=== PATIENT | female | born 1970 | race Caucasian/White ===

== ENCOUNTER 2022-06-04 14:06 | Emergency (ER) | payer SELFPAY ==
[~2022-06-04] VITALS: Ht 165.1 cm; Wt 65.8 kg
[2022-06-04 14:49] VITALS: BP_SYST 122
--- NOTE | 2022-06-04 14:54 | NUR ---
Patient triaged and placed in waiting room. VSS and patient appears in no acute distress at this time. Accompanied by self, awaiting available bed, and MD notified of need for MSE.
--- NOTE | 2022-06-04 15:00 | NUR ---
ER at bedside examining patient.
--- NOTE | 2022-06-04 15:30 | NUR ---
Pt presents to the ER BIB self from home. CC inflammation of right foot 2nd toe. Pt denies pain c/o discomfort and redness.
[2022-06-04] MEDS ORDERED: CEPH-548 PO ×2 (16:05→16:41)
--- NOTE | 2022-06-04 16:43 | NUR ---
Patient given written and verbal discharge instructions and verbalizes understanding. ER MD discussed with patient the results and treatment provided. Patient in stable condition. ID arm band removed. IV catheter removed intact and dressing applied, no active bleeding. Rx of CEPHALEXIN given. Patient educated on pain management and to follow up with PMD. Opportunity for questions provided and answered. Medication side effect fact sheet provided.
[2022-06-04 16:46] VITALS: BP_SYST 122
== END 2022-06-04 16:43 | disposition home or self-care (01) ==
LOC: SED 14:06
DX: L03.031 Cellulitis of right toe (principal); R21 Rash and other nonspecific skin eruption; M79.674 Pain in right toe(s); E11.9 Type 2 diabetes mellitus without complications; Z79.899 Other long term (current) drug therapy
CPT/HCPCS: 99283